=== PATIENT | male | born 1950 | race Caucasian/White ===

== ENCOUNTER 2018-01-06 09:24 | Outpatient (CLI) | payer MEDICARE, BC ==
[2018-01-06 11:00] LABS: #Eosinphils 0.3 thou/uL (0.0-0.7); #Lymphocytes 1.5 thou/uL (1.20-3.40); #Monocytes 0.4 thou/uL (0.11-0.59); #Neutrophils 4.1 thou/uL (1.40-6.50); %Basophils 0.5 % (0.0-1.0); %Eosinophils 4.5 % (0.0-10.0); %Lymphocytes 23.9 % (21.0-51.0); %Monocytes 6.7 % (0.0-10.0); %Neutrophils 64.4 % (42.0-75.0); Hemoglobin 15.4 g/dL (14.0-18.0); Mean Corpuscular Hemoglobin 31.3 pg (27.0-31.0); Mean Corpuscular Volume 89.6 fL (78.0-98.0); Mean Platelet Volume 9.8 fL (7.4-10.4); Platelet Count 143 thou/uL (130-400); RBC Distribution Width 12.4 % (11.5-14.5); Red Blood Cell (RBC) Count 4.92 mill/uL (4.70-6.10); White Blood Cell (WBC) Count 6.4 thou/uL (4.8-10.8)
[2018-01-06 11:17] LABS: Anion Gap 8 mmol/L (10-20); BUN (Urea Nitrogen) 13 mg/dL (8.4-25.7); Calc. Creatinine Clearance 0 mL/min (70-130); Calcium 9.3 mg/dL (7.8-10.44); Carbon Dioxide 27 mmol/L (23-31); Chloride 109 mmol/L (98-107); Estimated GFR-MDRD 70; Glucose 96 mg/dL (80-115); Sodium 140 mmol/L (136-145)
== END 2018-01-06 09:25 | disposition home or self-care (01) ==
LOC: LABBT 09:24
PROVIDERS: ATTEND Orthopaedic Surgery Hand Surgery
DX: Z01.818 Encounter for other preprocedural examination (principal); M65.9 Synovitis and tenosynovitis, unspecified
CPT/HCPCS: 80048; 85025

== ENCOUNTER → 2018-01-11 | Day surgery (SDC) | payer MEDICARE, BC ==
[2018-01-06 09:47] VITALS: BMI 29.8
[~2018-01-11] MED LIST: Bacitracin Zinc Ointment 30 gm TUBE ONE; Betamet Acet/Betamet Na Ph 30 MG/5 ML VIAL ONE; Bupivacaine 0.25% HCL 30 ML VIAL ONE; Bupivacaine PF 0.5% 30 ML VIAL ONE; Clindamycin/D5W 600 mg/50 ml Premix Bag ONE; Dexamethasone 20 MG/5 ML VIAL ONE; Fentanyl 100 MCG/2 ML VIAL ONE; Lidocaine 1% PF 5 ML VIAL ONE; Ondansetron HCl/PF 4 MG/2 ML Vial ONE; PROPOFOL 200 MG/20 ML VIAL ONE; Sodium Chloride 0.9% 10 ML ONE; ePHEDrine/0.9% NaCl/PF SYRINGE 50 mg/10 ml ONE
--- NOTE | 2018-01-12 12:16 | OP ---
DATE OF PROCEDURE: 01/11/2018 PREOPERATIVE DIAGNOSES: 1. Right middle finger trigger digit. 2. Right middle finger flexor digitorum profundus superficialis tenosynovitis. POSTOPERATIVE DIAGNOSES: 1. Right middle finger trigger digit. 2. Right middle finger flexor digitorum profundus superficialis tenosynovitis. 3. Ganglia, 4 mm diameter from the junction A1 maciel and the tendon sheath. PROCEDURE PERFORMED: 1. Excision of ganglion tendon sheath, right middle finger. 2. Trigger digit release, right middle finger. 3. Tenosynovectomy, radical, from superficialis profundus, right middle finger. 4. Celestone application. SURGEON: Dr. Angelo Moralez SPECIMEN SENT: 1. Ganglion 4 mm. 2. Tenosynovial sample approximately 2 mm wide x 8 mm long section. BLOOD LOSS: 10 mL. TOURNIQUET TIME: 9 minutes. FINDINGS: Very thick tenosynovium with ganglion at the A1 maciel tendon sheath junction described ab sherley. DESCRIPTION OF PROCEDURE: After successful general LMA technique, the limb was prepped and draped. The patient had the anesthesia augmented by 10 mL 0.5% Marcaine, preincision block prior to the incis ion and 5 mL afterwards. All without Marcaine. The patient then had the limb exsanguinated, tourniquet inflated to 250 mmHg pressure. Timeout were identified. Zigzag Walter type incision was made beginning about 5 mm distal to the palmar long fing er flexion crease and following the proximal 5 mm. Carried through skin, subcutaneous tissue, identi fied the digital nerves, retracted them well away from the surgical field and here exposed with very thick tenosynovium, just distal to the A1 maciel and proximal A1 maciel. This was released. Then, t he A1 maciel was brought through these and we noticed a 4 mm ganglion. We resected the ganglion, the n performed tendon release under the base of the ganglion and performed the maciel release under the base of the ganglion. The ganglion was sent as specimen. We resected 2 mm of the A1 maciel to preve nt recurrence, and released the A1 maciel to include approximately 2 mm of the A2 maciel. Lifted the flexor tendon up, found marked tenosynovium palmar to the most dorsal band and palmar to t he deep veins and this was resected leaving the specimen as above. Then, we proximally released a ma rked amount of tenosynovium along with some very thick palmar fascia. At this time, the ring finger had passive motion with no catching, locking triggering was very smooth and had normal flexion arc at rest and could lie in congruency with the other digits. We released the tourniquet. We placed 3 mL of Celestone in the area that the tendon was thickest, th en closed the incision with interrupted 4-0 nylon in a simple pattern after releasing the tourniquet, obtained hemostasis. Bulky dressing was applied and the patient left the operating room without samantha dence of anesthetic or operative complications.
== END ==
LOC: SDC 08:51
PROVIDERS: ATTEND Orthopaedic Surgery Hand Surgery
PROC: 0LB70ZZ Excision of Right Hand Tendon, Open Approach (ICD-10-PCS; principal; 2018-01-11)
DX: M67.441 Ganglion, right hand (principal); M65.9 Synovitis and tenosynovitis, unspecified; I12.9 Hypertensive chronic kidney disease with stage 1 through stage 4 chronic kidney disease, or unspecified chronic kidney disease; N18.9 Chronic kidney disease, unspecified; M10.9 Gout, unspecified; M19.90 Unspecified osteoarthritis, unspecified site; Z79.899 Other long term (current) drug therapy; Z88.6 Allergy status to analgesic agent
CPT/HCPCS: 88304; 88305; A4216; J0131; J0702; J3010; J3490; S0020

== ENCOUNTER 2019-06-21 07:07 | Outpatient (CLI) | payer MEDICARE, BC ==
--- NOTE | 2019-06-21 09:15 | ULT ---
ULTRASOUND ABDOMEN COMPLETE DOPPLER DUPLEX: Date: 06/21/2019 HISTORY: 69-year-old male with hyperlipidemia, E78.5. TECHNIQUE: In addition to Fernandez scale images of intra-abdominal contents, color flow and spectral analysis was pe rformed for select arteries associated with the kidneys. FINDINGS: The gallbladder has normal wall thickness and has no evidence of gallstones or sludge. The hepatic e chogenicity is normal. The kidneys have normal echogenicity, and there is no hydronephrosis. There is no splenomegaly. There is no abdominal aortic aneurysm. No free fluid is identified. The inferi or vena cava is visualized. The pancreas is visualized, although ultrasound is relatively insensitiv e for pancreatic pathology compared to CT and MRI. There is no biliary dilation. Common duct caliber is 3 mm. There is a 1 cm tiny cortical cyst at right renal lower pole. Highest Peak Systolic Velocities: Right renal artery: 105 cm/s Left renal artery: 175 cm/s Aorta: 100 cm/s Renal Artery/Aorta Ratio: Right: 1.0 Left: 1.7 Resistive Index: Right arcuate: 0.55 Left arcuate: 0.53 IMPRESSION: 1. Tiny right renal cyst. 2. Otherwise negative. 3. No evidence of renal arterial hypertension. jn r
== END 2019-06-21 07:08 | disposition home or self-care (01) ==
LOC: BICULT 07:07
PROVIDERS: ATTEND Internal Medicine Nephrology
DX: I13.10 Hypertensive heart and chronic kidney disease without heart failure, with stage 1 through stage 4 chronic kidney disease, or unspecified chronic kidney disease (principal); N18.2 Chronic kidney disease, stage 2 (mild); N40.0 Benign prostatic hyperplasia without lower urinary tract symptoms; K21.9 Gastro-esophageal reflux disease without esophagitis; E78.5 Hyperlipidemia, unspecified; I73.9 Peripheral vascular disease, unspecified; M19.90 Unspecified osteoarthritis, unspecified site; I51.9 Heart disease, unspecified; K57.90 Diverticulosis of intestine, part unspecified, without perforation or abscess without bleeding
CPT/HCPCS: 93975

== ENCOUNTER 2019-07-12 15:09 | Outpatient (CLI) | payer MEDICARE, BC ==
--- NOTE | 2019-07-12 15:32 | RAD ---
Lumbar spine 2 views HISTORY: Low back pain. FINDINGS: There are 5 lumbar type vertebrae. Pedicles are intact. Vertebral body heights and alignmen t are maintained. There is osteophytosis throughout the vertebral bodies and facets. IMPRESSION: Osseous degenerative changes. No evidence of compression fracture. No acute osseous abnor malities are demonstrated.
== END 2019-07-12 15:10 | disposition home or self-care (01) ==
LOC: BICRAD 15:09
PROVIDERS: ATTEND Internal Medicine Nephrology
DX: I13.10 Hypertensive heart and chronic kidney disease without heart failure, with stage 1 through stage 4 chronic kidney disease, or unspecified chronic kidney disease (principal); N18.9 Chronic kidney disease, unspecified; N40.0 Benign prostatic hyperplasia without lower urinary tract symptoms; E78.5 Hyperlipidemia, unspecified; K21.9 Gastro-esophageal reflux disease without esophagitis; K57.30 Diverticulosis of large intestine without perforation or abscess without bleeding; I25.10 Atherosclerotic heart disease of native coronary artery without angina pectoris; I73.9 Peripheral vascular disease, unspecified; M19.90 Unspecified osteoarthritis, unspecified site
CPT/HCPCS: 72100

== ENCOUNTER 2023-04-21 14:45 | Outpatient (CLI) | payer MEDICARE, BC | END 2023-04-21 14:46 | disposition home or self-care (01) | LOC: ULT 14:45 | PROVIDERS: ATTEND Family Medicine | DX: M79.605 Pain in left leg (principal); M79.89 Other specified soft tissue disorders ==

== ENCOUNTER 2025-02-05 15:05 | Outpatient (CLI) | payer MEDICARE, BC | END 2025-02-05 15:06 | disposition home or self-care (01) | LOC: BICRAD 15:05 | PROVIDERS: ATTEND Family Medicine | DX: M79.644 Pain in right finger(s) (principal) ==